=== PATIENT | female | born 1990 | race Caucasian/White ===

== ENCOUNTER 2016-10-11 14:41 | Emergency (ER) | payer OTHER ==
[~2016-10-11] VITALS: Ht 167.6 cm; Wt 96.0 kg
[~2016-10-11 14:41] MED LIST: PROP10 PO
[2016-10-11] MEDS ORDERED: HYDROCODONE/ACETAMINOPHEN 5-325 MG TABLET PO ONE (16:15)
[2016-10-11 17:44] VITALS: BP 118/87
== END 2016-10-11 17:45 | disposition home or self-care (01) ==
LOC: EMS 14:42
DX: R51 Headache (principal); F17.210 Nicotine dependence, cigarettes, uncomplicated
CPT/HCPCS: 70450; 99284